=== PATIENT | male | born 1985 | race Caucasian/White ===

== ENCOUNTER 2018-04-18 14:29 | Inpatient (IN) ==
--- NOTE | 2018-04-18 15:14 | Emergency Department Note ---
Disposition Clinical Impression: Hepatitis, Jaundice due to hepatitis Disposition: Admitted As Inpatient Condition: Good Referrals: NONE,PCP [Primary Care Provider] - Dick Lambert [Family Provider] - Forms: ED Satisfaction Letter, Work/School Release Time of Disposition: 19:30 General Adult HPI - General Chief complaint: ED Abdominal Pain Stated complaint: "kidney & liver pain,blood in urine" Time Seen by Provider: 04/18/18 14:49 Source: patient, family Mode of arrival: ambulatory Limitations: no limitations - History of Present Illness HPI Narrative: This is a 33-year-old male with a history of hepatitis C who comes to emergency department reporting bilateral flank pain and right upper quadrant pain began again about 2.5 days prior to arrival. No vomiting, no diarrhea. He was previously referred to the health department regarding the biopsy, but never followed up. Pain Scale: 8 - Related Data Home Medications Medication Instructions Recorded Confirmed No Known Home Drugs 04/18/18 04/18/18 Allergies Allergy/AdvReac Type Severity Reaction Status Date / Time Penicillins Allergy Swelling Verified 04/18/18 14:33 of Lip/Tongue/Throat All systems ED: reviewed and negative except as stated. Gastrointestinal: Reports: abdominal pain Genitourinary: Reports: other (Flank pain bilateral) Past Medical History - Past Medical History Medical history: Reports: hepatitis, other Psychiatric history: Reports: depression - Social History Smoking Status: Current every day smoker Alcohol use: Reports: none Drug use: Reports: IV Drug Use Physical Exam - General Limitations: no limitations General appearance: alert, in no apparent distress - Head Head exam: atraumatic, normocephalic, normal inspection - Eye Eye exam: Present: normal appearance, PERRL, EOMI, scleral icterus (There is mild scleral icterus). Absent: conjunctival injection - Chest Chest inspection: Present: normal inspection, symmetric chest wall rise - Respiratory Respiratory exam: Present: normal lung sounds bilaterally - Cardiovascular Cardiovascular exam: Present: regular rate, normal rhythm, normal heart sounds - Abdominal Exam Abdominal exam: Present: soft, tenderness (Mild right upper quadrant tenderness) Abdominal tenderness: Present: RUQ, mild. Absent: RLQ, LUQ, LLQ, epigastrium - Extremities Exam Extremities exam: Present: normal inspection, full ROM. Absent: tenderness, pedal edema - Back Exam Back exam: Present: normal inspection, CVA tenderness (R), CVA tenderness (L) ( There is mild bilateral CVA tenderness). Absent: vertebral tenderness, rashes - Neurological Exam Neurological exam: Present: alert, oriented X3 - Psychiatric Psychiatric exam: Present: normal affect, normal mood - Skin Skin exam: Present: warm, dry, intact, normal color Course Course Narrative: This is a 33-year-old male with a history of hepatitis C with right upper quadrant pain concerning for an exacerbation of hep C. Vital Signs Temperature 97.9 F 04/18/18 14:34 Pulse Rate 93 04/18/18 14:34 Respiratory Rate 20 04/18/18 14:34 Blood Pressure 124/74 04/18/18 14:34 O2 Sat by Pulse Oximetry 99 04/18/18 14:34 Temperature 97.9 F 04/18/18 14:42 Pulse Rate 80 04/18/18 16:57 Respiratory Rate 16 04/18/18 16:57 Blood Pressure 99/72 04/18/18 16:57 O2 Sat by Pulse Oximetry 99 04/18/18 16:57 Oxygen Delivery Oxygen Delivery Room Air Medical Decision Making - [facility] Narrative Medical decision making narrative: This is a 33-year-old male with known hepatitis C who appears to have a flare of his hepatitis C with significant elevations in his AST and ALT and bilirubin elevation causing jaundice I discussed his case with the on-call hospitalist, who accepted him for admission - Lab Data Lab results reviewed: Yes I reviewed the patient's lab results. Lab results narrative: CBC was unremarkable BMP was unremarkable LFT showed elevated AST at 851, ALT greater than 500, bilirubin elevated at 2.3 Lipase was low at 33 Result diagrams: 04/18/18 15:10 04/18/18 15:10 Lab Results 04/18/18 04/18/18 04/18/18 Range/Units 15:10 15:10 17:54 WBC 4.7 (4.3-11.1) K/mcL RBC 5.66 H (4.19-5.50) M/mcL Hgb 15.9 (12.9-16.9) g/dL Hct 49.9 (37.5-50.1) % MCV 88.2 (83.0-100.0) fL MCH 28.1 (28.0-33.3) pg MCHC 31.9 (31.6-35.5) g/dL RDW 13.6 (11.5-14.5) % Plt Count 137 L (140-400) K/mcL MPV 12.1 (9.4-12.4) fL Immature Gran % 1.7 (0-4) % Seg Neutrophils % 57.7 % Lymphocytes % 26.9 % Monocytes % 10.2 % Eosinophils % 2.6 % Basophils % 0.9 % Neutrophils # 2.7 (1.6-8.9) K/mcL Lymphocytes # 1.3 (0.6-4.6) K/mcL Monocytes # 0.5 (0.0-1.3) K/mcL Eosinophils # 0.1 (0.0-0.6) K/mcL Basophils # 0.0 (0.0-0.2) K/mcL Reactive Lymphocytes Present A (Not Present) Platelet Estimate Normal (Normal) Sodium 140 (136-145) mEq/L Potassium 3.7 (3.5-5.1) mEq/L Chloride 102 (98-107) mEq/L Carbon Dioxide 32 H (23-29) mEq/L BUN 12 (6-20) mg/dL Creatinine 1.05 (0.70-1.30) mg/dL Est GFR ( Amer) > 60 (> 60) Est GFR (Non-Af Amer) > 60 (> 60) BUN/Creatinine Ratio 11 (6-26) Glucose 85 (70-105) mg/dL Calculated Osmolality 289 (280-300) Calcium 8.7 (8.6-10.3) mg/dL Total Bilirubin 2.3 H (0.3-1.0) mg/dL Direct Bilirubin 0.9 H (0.0-0.2) mg/dL Indirect Bilirubin 1.4 H (0.0-1.2) mg/dL AST 851 H (13-39) Units/L ALT > 500 H (7-52) Units/L Alkaline Phosphatase 145 H (34-104) Units/L Serum Total Protein 7.0 (6.4-8.9) g/dL Albumin 3.6 (3.5-5.7) g/dL Globulin 3.4 (2.4-3.5) g/dL Albumin/Globulin Ratio 1.1 (1.1-2.2) Lipase 33 (11-82) Units/L Urine Color Dark Yellow (Yellow) Urine Clarity Clear (Clear) Urine pH 6.5 (5.0-8.0) pH Units Ur Specific Cheney 1.026 H (1.010-1.025) Urine Protein Negative (Neg-Trace) mg/dL Urine Glucose (UA) Normal (Normal) mg/dL Urine Ketones Negative (Negative) mg/dL Urine Blood Negative (Negative) Urine Nitrite Negative (Negative) Urine Bilirubin Moderate H (Negative) Urine Urobilinogen 4.0 H (Normal) mg/dL Ur Leukocyte Esterase Negative (Negative) Ur Culture Indicated? NO (NO) Critical Care Time Critical Care Time: No
[2018-04-18 15:34] LABS: Basophils % 0.9 %; Eosinophils # 0.1 K/mcL (0.0-0.6); Eosinophils % 2.6 %; Hematocrit 49.9 % (37.5-50.1); Hemoglobin 15.9 g/dL (12.9-16.9); Immature Granulocytes % 1.7 % (0-4); Lymphocytes # 1.3 K/mcL (0.6-4.6); Lymphocytes % 26.9 %; Mean Corpuscular HGB Conc 31.9 g/dL (31.6-35.5); Mean Corpuscular Hemoglobin 28.1 pg (28.0-33.3); Mean Corpuscular Volume 88.2 fL (83.0-100.0); Mean Platelet Volume 12.1 fL (9.4-12.4); Monocytes # 0.5 K/mcL (0.0-1.3); Monocytes % 10.2 %; Neutrophils # 2.7 K/mcL (1.6-8.9); Platelet Count 137 K/mcL (140-400); Red Blood Count 5.66 M/mcL (4.19-5.50); Red Cell Distribution Width 13.6 % (11.5-14.5); Segmented Neutrophils % 57.7 %
[2018-04-18] MEDS: 0.9 % Sodium Chloride 1,000 ML IVC SCH ×2 (15:42→16:56)
[2018-04-18 16:00] LABS: Alanine Aminotransferase > 500 Units/L (7-52); Albumin 3.6 g/dL (3.5-5.7); Albumin/Globulin Ratio 1.1 (1.1-2.2); Alkaline Phosphatase 145 Units/L (34-104); Aspartate Amino Transferase 851 Units/L (13-39); BUN/Creatinine Ratio 11 (6-26); Bilirubin,Direct 0.9 mg/dL (0.0-0.2); Bilirubin,Indirect 1.4 mg/dL (0.0-1.2); Bilirubin,Total 2.3 mg/dL (0.3-1.0); Blood Urea Nitrogen 12 mg/dL (6-20); Calcium 8.7 mg/dL (8.6-10.3); Carbon Dioxide 32 mEq/L (23-29); Chloride 102 mEq/L (98-107); Globulin 3.4 g/dL (2.4-3.5); Glucose 85 mg/dL (70-105); Lipase 33 Units/L (11-82); Osmolality,Calculated 289 (280-300); Potassium 3.7 mEq/L (3.5-5.1); Sodium 140 mEq/L (136-145); eGFR For Non-African Americans > 60 (> 60)
[2018-04-18 16:41] LABS: Platelet Estimate Normal (Normal); Reactive Lymphocytes Present (Not Present)
[2018-04-18 18:05] LABS: Bilirubin,Urine Moderate (Negative); Blood,Urine Negative (Negative); Clarity,Urine Clear (Clear); Color,Urine Dark Yellow (Yellow); Glucose,Urine (UA) Normal (Normal); Ketones,Urine Negative (Negative); Leukocyte Esterase,Urine Negative (Negative); Nitrite,Urine Negative (Negative); PH,Urine 6.5 pH Units (5.0-8.0); Protein,Urine Negative (Neg-Trace); Specific Gravity,Urine 1.026 (1.010-1.025)
[2018-04-18] MEDS ORDERED: 0.9 % Sodium Chloride 1,000 ML IVC SCH (19:30)
[2018-04-18] MEDS ORDERED: Naloxone 0.4 MG/ML INJ IVP PRN (20:22)
--- NOTE | 2018-04-18 21:27 | Internal Med History&Physical ---
Date of Encounter: 04/18/18 Time of Encounter: 21:00 Internal Medicine - H&P: HPI Chief complaint: Back pain and abdominal pain Admitted From: Emergency Dept Plans for Post Hospital Care: Home History of present illness: Mr. Barriga is a 33 year old male with history of hepatitis C, bleeding ulcers, cholecystitis and IV drug use who presents to the ED with 1 week history of bilateral flank pain and right upper quadrant abdominal pain. The patient says that this started insidiously about one week ago and has been progressively getting worse. It is associated with some nausea but no vomiting as well as profound lethargy and some yellowing of the skin. He says that over the past 2 days he has basically been nonstop sleeping. In fact, he says that he believes he has not woken up in the past 2 days at all. In addition of this, he says that he has had hot and cold flashes and he has had sweats associated with this as well. He has also had some cramping and pain in his arms and legs. He has no aggravating or alleviating factors. He did take a cold and sinus medication which to his knowledge had acetaminophen in it but was not very helpful. His only other symptom at this time is dark-colored urine. The patient mentions that he has had a history of hospitalizations over the course the past year. He says that about 1 year ago he was at [facility] which time he was admitted for what he says he believes was suspected kidney failure, however he signed out AGAINST MEDICAL ADVICE prior to finishing the workup. He says that he does not believe he needed hemodialysis at that time. In addition of this, he says that over the past couple of months he has had to go to [facility] several times due to episodes of fainting and passing out, but each time he has also left AGAINST MEDICAL ADVICE prior to completing the workup. He does admit to a history of IV drug use, mentioning at the last time he used IV meth was about one week ago. He denies use of alcohol, says the last time he had any alcohol consumption was about 4 years ago. He smokes about half a pack a day. In the emergency department, the patient did have a series of labs which demonstrated elevated liver enzymes with AST 851, ALT greater than 500, T BILI 2.3, D BILI 0.9, I BILI 1.4. Past Med Surg Social Fam HX - Past Medical History Medical history: hepatitis, other Additional medical history: Hepatitis C; "Heart problems" esophageal varices Psychiatric history: depression - Social History Smoking Status: Current every day smoker Alcohol use: none Drug use: IV Drug Use Internal Medicine - H&P: Meds No Known Home Drugs 04/18/18 [History] 3 Allergy/AdvReac Type Severity Reaction Status Date / Time Penicillins Allergy Swelling Verified 04/18/18 14:33 of Lip/Tongue/Throat All Systems PM: A 10-system review of systems was performed and is negative for pertinent findings except as documented above in the HPI. Review of systems: Constitutional: Admit to subjective fever, chills, lethargy Head/Neck: Denies RUST, neck stiffness EENT: Denies vision changes/blurriness, rhinorrhea, congestion, sore throat CVS: Denies chest pain, palpitations, DAVIES, orthopnea, edema, PND Pulm: Denies SOB, cough, sputum, hemoptysis, wheezing GI: Admits to abdominal pain nausea. Denies vomiting, constipation, hematemesis , hematochezia, melena : Denies dysuria, increased frequency, urgency, hematuria Heme: Denies ease of bleeding or bruising MSK: Denies joint pain, limited ROM Skin: Admits to yellowing of the skin. Denies rashes, ulcers, color changes. Neuro: Denies RUST, paresthesias, focal deficits, ataxia - Constitutional Vitals: Temp Pulse Resp BP Pulse Ox 99.2 F 82 14 113/61 96 04/18/18 20:51 04/18/18 20:51 04/18/18 20:51 04/18/18 20:51 04/18/18 20:51 Exam: Gen: Vitals noted. No acute distress. Patient appears listless HEENT: Normocephalic, atraumatic. Very mild scleral icterus noted bilaterally Neck: Supple. No adenopathy. Cardiac: RRR, no murmur, +S1/S2 Pulmonary: CTA bilaterally, no wheezes, rales or rhonchi, equal chest expansion Abdomen: soft, mildly tender to palpation, no guarding. There is no hepatomegaly noted. Back: Nontender throughout. Mild CVA tenderness bilaterally MSK: ROM intact, no joint swelling noted Extremities: no BLE edema, nontender calf, no cyanosis or clubbing Neuro: moves all extremities, no focal deficits. A&Ox3 Psych: Cooperative, appears anxious Internal Med - H&P Results - Labs CBC & Chem 7: 04/18/18 15:10 04/18/18 15:10 - Assessment and plan (1) Hepatitis Current Visit: Yes Status: Acute Assessment and plan: Presents with abdominal pain and flank pain, likely secondary to hepatitis Known history of hepatitis C, however unlikely source of acute flare Patient does have history of IV drug use, most recent use one week ago Presents with AST 851, ALTs > 500, total bilirubin 2.3, direct bilirubin 0.9, indirect bilirubin 1.4. There is scleral icterus on exam We will check the patient for viral hepatitis panel A, B, and C Right upper quadrant ultrasound IV fluids (2) Hepatic encephalopathy Current Visit: Yes Status: Acute Assessment and plan: Hepatic encephalopathy AST 851, ALT greater than 500. Ammonia 75 Symptomatic, patient says he slept for the past 2 days He appears akathisic, there is mild asterixis takes on exam Start the patient on twice a day lactulose at this time We will recheck ammonia and hepatic panel in the morning (3) IV drug user Current Visit: Yes Status: Acute Assessment and plan: History of IV drug use No evidence of time, however high risk We will continue to monitor, check for hepatitis If the patient demonstrates evidence of infection consider blood cultures (4) Tobacco use Current Visit: Yes Status: Acute Assessment and plan: Nicotine patches as needed (5) DVT prophylaxis Current Visit: Yes Status: Acute Assessment and plan: Subcutaneous heparin - Time Spent With Patient Total time spent is greater than 50% in coordination of care (as documented) at patient's floor/unit and/or counseling patient:
[2018-04-18 22:44] LABS: Hepatitis B Core IgM Nonreactive (Nonreactive); Hepatitis B Surface Antigen Nonreactive (Nonreactive)
[2018-04-18 22:48] LABS: Hepatitis A Antibody IgM Reactive (Nonreactive)
[2018-04-18 22:49] LABS: Hepatitis C Virus Antibody Reactive (Nonreactive)
[2018-04-18] MEDS: Ringers Solution, Lactated 1,000 ML IVC SCH (22:53)
[2018-04-18] MEDS: Ketorolac 15 MG/ML VIAL IVP PRN (22:53)
[2018-04-18] MEDS: *HR* Heparin 5,000 UNIT/ML VIAL SQ SCH (22:54)
[2018-04-18] MEDS: Lactulose Oral Soln 20 GM/30 ML UDC PO SCH (23:02)
[2018-04-19] MEDS ORDERED: *HR* Promethazine 25 MG/ML VIAL IM PRN (03:41)
[2018-04-19] MEDS: Ketorolac 15 MG/ML VIAL IVP PRN (05:22)
[2018-04-19] MEDS: *HR* Heparin 5,000 UNIT/ML VIAL SQ SCH ×3 (05:28→20:57)
[2018-04-19] MEDS: Ondansetron ODT 4 MG TAB.RAPDIS SL PRN (05:55)
[2018-04-19 06:04] LABS: Basophils % 0.6 %; Eosinophils # 0.1 K/mcL (0.0-0.6); Eosinophils % 1.9 %; Hematocrit 46.1 % (37.5-50.1); Hemoglobin 15.2 g/dL (12.9-16.9); Immature Granulocytes % 0.9 % (0-4); Lymphocytes # 1.7 K/mcL (0.6-4.6); Lymphocytes % 27.3 %; Mean Corpuscular Hemoglobin 28.4 pg (28.0-33.3); Mean Corpuscular Volume 86.2 fL (83.0-100.0); Mean Platelet Volume 12.5 fL (9.4-12.4); Monocytes # 0.6 K/mcL (0.0-1.3); Neutrophils # 3.8 K/mcL (1.6-8.9); Platelet Count 127 K/mcL (140-400); Red Blood Count 5.35 M/mcL (4.19-5.50); Red Cell Distribution Width 13.9 % (11.5-14.5); Segmented Neutrophils % 59.3 %
[2018-04-19 06:19] LABS: INR 1.2; Prothrombin Time 13.7 Seconds (9.4-12.1)
[2018-04-19 06:27] LABS: Alanine Aminotransferase > 500 Units/L (7-52); Albumin 3.4 g/dL (3.5-5.7); Albumin/Globulin Ratio 1.1 (1.1-2.2); Alkaline Phosphatase 144 Units/L (34-104); Aspartate Amino Transferase 991 Units/L (13-39); BUN/Creatinine Ratio 10 (6-26); Bilirubin,Direct 1.6 mg/dL (0.0-0.2); Bilirubin,Indirect 1.6 mg/dL (0.0-1.2); Bilirubin,Total 3.2 mg/dL (0.3-1.0); Blood Urea Nitrogen 8 mg/dL (6-20); Calcium 8.6 mg/dL (8.6-10.3); Carbon Dioxide 26 mEq/L (23-29); Chloride 105 mEq/L (98-107); Cholesterol 72 mg/dL (< 200); Glucose 131 mg/dL (70-105); HDL Cholesterol 4 mg/dL (40-59); LDL Cholesterol,Calculated 46 mg/dL (0-99); Osmolality,Calculated 282 (280-300); Potassium 3.6 mEq/L (3.5-5.1); Sodium 136 mEq/L (136-145); Total Protein 6.4 g/dL (6.4-8.9); Triglycerides 112 mg/dL (< 150); eGFR For Non-African Americans > 60 (> 60)
[2018-04-19] MEDS ORDERED: Isovue-370 500 ML INFUS..BTL IV ONE ×2 (07:11→08:39)
[2018-04-19] MEDS: Lactulose Oral Soln 20 GM/30 ML UDC PO SCH ×2 (09:30→20:57)
[2018-04-19] MEDS: Nicotine 14 MG PATCH.TD24 TD SCH (09:30)
[2018-04-19] MEDS: Ketorolac 30 MG/ML VIAL IVP PRN ×2 (14:50→20:57)
[2018-04-19] MEDS ORDERED: 0.9 % Sodium Chloride 1,000 ML IVC ONE ×2 (15:11→18:51)
--- NOTE | 2018-04-19 15:29 | Gastroenterology Consult Note ---
<Zena Thompson - Last Filed: 04/19/18 18:26> Date of Encounter: 04/19/18 Time of Encounter: 11:35 - Assessment and plan (1) Hepatitis Status: Acute Assessment and plan: 33-year-old male with chronic hepatitis C and acute hepatitis A infection. He has never had hepatitis A before and not know where he contracted it. He has had one week of increased fatigue, weakness, right upper quadrant pain, nausea, jaundice. Hepatitis a positive, hepatitis C antibody positive liver ultrasound demonstrating mild hepatic steatosis abdominal CT demonstrating splenomegaly PT 13.7, INR 1.2 platelets 127 total bilirubin 3.2, direct bilirubin 1.6, indirect bilirubin 1.6 AST 931, ALT>500 ammonia 75 albumin 3.4 lipase 33 patient reported that abdominal pain is tolerable. Abdominal exam is soft, right upper quadrant in epigastric tender. No jaundice or scleral icterus. Plan: continue supportive care. Patient is tolerating PO intake well. (2) Hepatic encephalopathy Status: Acute Assessment and plan: Hepatic encephalopathy with symptoms of increased sleep. He is alert and or iented times 3. ammonia 75 -patient then started on lactulose 20 BID (3) IV drug user Status: Acute Assessment and plan: IV drug user of methamphetamine, last use one week ago. (4) Tobacco use Status: Acute Assessment and plan: Current smoker of half pack per day - Time Spent With Patient Total time spent is greater than 50% in coordination of care (as documented) at patient's floor/unit and/or counseling patient: GI History of Present Illness - Data of Consult Consult date: 04/18/18 Requesting Physician: Jeovany Farias - Consult Narrative Reason for consult: Chronic hepatitis C and acute hepatitis A History of present illness: Mr. Barriga is a 33 year old male with past medical history of hepatitis C who presented to [facility] complaining of right upper quadrant pain and fatigue for one week duration. Hie was found that be hepatitis A positive so gastroenterology was consulted. He reported that he has not been in contact with anyone with hepatitis A and is not know how he contracted it. He has never had it before. He reported that for one week he has had increased fatigue and weakness. He has been sleeping a lot. He has had right upper quadrant pain with nausea but no vomiting. He admitted fever, chills, jaundice. Denied scleral icterus, pruritus. He is an IV drug user of methamphetamine but stated that he is not used in 1 week. He denies alcohol use. He is a current smoker of half pack per day. Past Med Surg Social Fam HX - Past Medical History Attestation: Yes The following information was validated with the patient. Source: patient Medical history: hepatitis, other Additional medical history: Hepatitis C; "Heart problems" esophageal varices Psychiatric history: depression - Past Surgical History Surgical History: cholecystectomy - Social History Smoking Status: Current every day smoker Packs per day: 0.5 Smokeless Tobacco Status: No Alcohol use: none Drug use: marijuana, methamphetamine, IV Drug Use - Family History Father Name: braden Living Status: Age at : 36 Cause of : cancer Hx Family Cancer: Yes (hodgkins and non hodgkins) Maternal Grandfather Living Status: Age at : 59 Cause of : cancer Hx Family Cancer: Yes (lung) Sister Name: luis Age: 32 Living Status: Still Living Hx Family Cardiac Disorders: Yes Hx Family Neuromuscular Disorders: Yes - Gastrointestinal Gastrointestinal: Present: abdominal pain, nausea, vomiting. Absent: diarrhea, heartburn, hematemesis, hematochezia, melena - Constitutional Constitutional: anorexia, fatigue, fever(s) - EENT Nose, mouth and throat: Absent: dysphagia - Cardiovascular Cardiovascular ROS: Absent: chest pain, irregular heart rhythm - Respiratory Respiratory IM: Absent: cough, dyspnea - Genitourinary Genitourinary: Present: change in color (dark). Absent: Urinary frequency - Neurological ROS Neurological GI: Absent: confusion, headache(s) - Hematologic/Lymphatic Hematologic/Lymphatic pediatric: Absent: easy bleeding - Musculoskeletal Musculoskeletal ROS GI: Absent: joint swelling - Integumentary Integumentary GI: Absent: jaundice, pruritis, rash - Psychiatric ROS Psychiatric GI: Absent: anxiety - Endocrine Endocrine IM: Present: fatigue - Constitutional Vitals: Temp Pulse Resp BP Pulse Ox 101.1 F H 71 12 93/56 96 04/19/18 15:02 04/19/18 15:02 04/19/18 15:02 04/19/18 15:02 04/19/18 15:02 Exam: Gen.: Vitals noted. No acute distress. AAOx3 HEENT: oropharynx clear, Normocephalic, atraumatic, no jaundice or scleral icterus Neck: Supple. No adenopathy. Cardiac: RRR, no murmur, +S1/S2 Pulmonary: CTA bilaterally, no wheezes, rales or rhonchi, equal chest expansion Abdomen: soft, nontender, Bowel sounds noted, no guarding MSK: ROM intact, no joint swelling noted Extremities: no BLE edema, nontender calf, no cyanosis or clubbing Neuro: A&Ox3, moves all extremities, no focal deficits Psych: Appropriate mood and behavior Results - Labs CBC & Chem 7: 04/19/18 05:34 04/19/18 05:34 Labs: Last Result Calcium 8.6 mg/dL (8.6-10.3) 04/19/18 05:34 Triglycerides 112 mg/dL (< 150) 04/19/18 05:34 Entire Visit Hgb 15.2 g/dL (12.9-16.9) 04/19/18 05:34 Hct 46.1 % (37.5-50.1) 04/19/18 05:34 PT 13.7 Seconds (9.4-12.1) H 04/19/18 05:34 Total Bilirubin 3.2 mg/dL (0.3-1.0) H 04/19/18 05:34 AST 991 Units/L (13-39) H 04/19/18 05:34 ALT > 500 Units/L (7-52) H 04/19/18 05:34 Ammonia 75 mcmol/L (16-53) H 04/19/18 05:34 Lipase 33 Units/L (11-82) 04/18/18 15:10 - ABG ABG results: PT/INR, D-dimer PT 13.7 Seconds (9.4-12.1) H 04/19/18 05:34 - Impressions Impressions Liver Ultrasound 04/18/18 20:25 IMPRESSION: Mild hepatic steatosis. No focal lesion detected. Nonvisualization of the gallbladder. Correlate with any potential history of cholecystectomy. D/ / Og Gutierrez MD / Og Gutierrez MD Interpreting Provider: Og Gutierrez MD Abdomen/Pelvis CT 04/19/18 08:39 IMPRESSION: 1. No evidence of renal stones or obstructive uropathy. Small bilateral renal cysts. 2. Splenomegaly. 3. Abdominal lymphadenopathy as described. 4. No acute gastrointestinal abnormality. RECOMMENDATIONS: Fleischner Society guidelines for follow-up and management of incidentally detected pulmonary nodules: Single Solid Nodule: Nodule size less than 6 mm In a low-risk patient, no routine follow-up. In a high-risk patient, optional CT at 12 months. Nodule size equals 6-8 mm In a low-risk patient, CT at 6-12 months, then consider CT at 18-24 months. In a high-risk patient, CT at 6-12 months, then CT at 18-24 months. Nodule size greater than 8 mm In a low-risk patient, consider CT at 3 months, PET/CT, or tissue sampling. In a high-risk patient, consider CT at 3 months, PET/CT, or tissue sampling. Multiple Solid Nodules: Nodule size less than 6 mm In a low-risk patient, no routine follow-up. In a high-risk patient, optional CT at 12 months. Nodule size equals 6-8 mm In a low-risk patient, CT at 3-6 months, then consider CT at 18-24 months. In a high-risk patient, CT at 3-6 months, then CT at 18-24 months. Nodule size greater than 8 mm In a low-risk patient, CT at 3-6 months, then consider CT at 18-24 months. In a high-risk patient, CT at 3-6 months, then CT at 18-24 months. - Low risk patients include individuals with minimal or absent history of smoking and other known risk factors. - High risk patients include individuals with a history or smoking or known risk factors. Radiology 2017 http://pubs.rsna.org/doi/full/10.1148/radiol.[email or web address] D/ / 04/19/2018 09:56:54 Guera Alejandra MD / Francia Winchester Interpreting Provider: Guera Alejandra MD Consult Discharge Plan - Plan Instructions: Viral Hepatitis A (DC) Referrals: Sammie Buckley CNP [Partnered Physician] - 04/27/18 2:00 pm (Primary Care Physician appt has been made with Sammie Buckley CNP for Friday April 27, 2018 at 2:00 PM. Please arrive 30 minutes early to fill out medical history. Also bring a list of medications you are currently prescribed. If you are to cancel you must give a 24 hour notice and can contact the office at [phone].) <Waldemar Vides - Last Filed: 05/01/18 22:09> - Time Spent With Patient Total time spent is greater than 50% in coordination of care (as documented) at patient's floor/unit and/or counseling patient: GI History of Present Illness - Data of Consult Requesting Physician: Jeovany Farias - Consult Narrative History of present illness: Mr. Barriga is a 33 year old male - Constitutional Vitals: Temp Pulse Resp BP Pulse Ox 98.2 F 66 16 104/57 96 04/21/18 11:05 04/21/18 11:05 04/21/18 11:05 04/21/18 11:05 04/21/18 11:05 Results - Labs CBC & Chem 7: 04/20/18 11:35 04/21/18 05:38 Labs: Last Result Calcium 8.5 mg/dL (8.6-10.3) L 04/21/18 05:38 Triglycerides 112 mg/dL (< 150) 04/19/18 05:34 Entire Visit Hgb 14.5 g/dL (12.9-16.9) 04/20/18 11:35 Hct 43.5 % (37.5-50.1) 04/20/18 11:35 PT 13.7 Seconds (9.4-12.1) H 04/19/18 05:34 Total Bilirubin 6.3 mg/dL (0.3-1.0) H 04/21/18 05:38 AST 1219 Units/L (13-39) H 04/21/18 05:38 ALT > 500 Units/L (7-52) H 04/21/18 05:38 Ammonia 78 mcmol/L (16-53) H 04/21/18 05:38 Lipase 33 Units/L (11-82) 04/18/18 15:10 - ABG ABG results: PT/INR, D-dimer PT 13.7 Seconds (9.4-12.1) H 04/19/18 05:34 - Attending Attestation 33 year old with uncomplicated I examined this patient and my medical decision-making was reviewed with the Resident Physician. I agree with the documented findings, disposition and treatment plan as described except to the extent set forth below. acute hepatitis C in setting of possible chronic hepatitis C. Supportive management. Discharge when patient can eat adequately. Follow up in clinic.
--- NOTE | 2018-04-19 18:56 | Internal Med Progress Note ---
Hospitalist Progress Note - Encounter Date of Encounter: 04/19/18 Time of Encounter: 11:00 - Subjective Interval History: Patient does not appear jaundice on exam and abdomen soft nontender nondistended. Patient's transaminases however still elevated therefore will continue supportive care with IV fluids. Patient also became hypotensive this afternoon and received fluid boluses. - Exam Vitals: Temp Pulse Resp BP Pulse Ox 98.3 F 71 12 107/64 100 04/19/18 17:08 04/19/18 17:08 04/19/18 17:08 04/19/18 17:08 04/19/18 17:08 Exam: Gen.: Nonacute distress, alert and oriented 3 ENT: Mucosal membranes moist Respiratory: Lungs are clear to auscultation bilaterally without any wheezing rhonchi or rales Cardiovascular: Normal S1 and S2 regular rate rhythm no murmurs rubs or gallops Abdomen: Soft, nontender and nondistended with positive bowel sounds Extremities: No lower extremity edema Skin: Normal color - Assessment and Plan (1) Hepatitis Current Visit: Yes Status: Acute Assessment and Plan: AST elevated today at 991 from 851 on admission and ALT continues to be greater than 500 Total bilirubin increased as well to 3.2 today from 2.3 Direct bilirubin has increased to well from 0.9 on admission to 1.6 Patient with no history of hepatitis C now positive for hepatitis A GI following with recommendations for continue supportive care with IV fluids (2) Hepatic encephalopathy Current Visit: Yes Status: Acute Assessment and Plan: Ammonia 75 She alert and oriented this morning Continue twice a day lactulose at this time (3) IV drug user Current Visit: Yes Status: Acute Assessment and Plan: History of IV drug use (4) Tobacco use Current Visit: Yes Status: Acute Assessment and Plan: Nicotine patches as needed (5) DVT prophylaxis Current Visit: Yes Status: Acute Assessment and Plan: Subcutaneous heparin - Time Spent with Patient Total time spent is greater than 50% in coordination of care (as documented) at patient's floor/unit and/or counseling patient: Internal Medicine: Result - Labs CBC & Chem 7: 04/19/18 05:34 04/19/18 05:34 Labs: Short CBC 04/19/18 Range/Units 05:34 WBC 6.4 (4.3-11.1) K/mcL Hgb 15.2 (12.9-16.9) g/dL Hct 46.1 (37.5-50.1) % Plt Count 127 L (140-400) K/mcL Neutrophils # 3.8 (1.6-8.9) K/mcL BMP 04/19/18 05:34 Sodium 136 Potassium 3.6 Chloride 105 Carbon Dioxide 26 BUN 8 Creatinine 0.79 Glucose 131 H Calcium 8.6 Liver Function 04/19/18 Range/Units 05:34 Total Bilirubin 3.2 H (0.3-1.0) mg/dL Direct Bilirubin 1.6 H (0.0-0.2) mg/dL AST 991 H (13-39) Units/L ALT > 500 H (7-52) Units/L Alkaline Phosphatase 144 H (34-104) Units/L Albumin 3.4 L (3.5-5.7) g/dL - ABG Interpretation ABG results: PT/INR, D-dimer PT 13.7 Seconds (9.4-12.1) H 04/19/18 05:34 - Impressions Impressions Liver Ultrasound 04/18/18 20:25 IMPRESSION: Mild hepatic steatosis. No focal lesion detected. Nonvisualization of the gallbladder. Correlate with any potential history of cholecystectomy. D/ / Og Gutierrez MD / Og Gutierrez MD Interpreting Provider: Og Gutierrez MD Abdomen/Pelvis CT 04/19/18 08:39 IMPRESSION: 1. No evidence of renal stones or obstructive uropathy. Small bilateral renal cysts. 2. Splenomegaly. 3. Abdominal lymphadenopathy as described. 4. No acute gastrointestinal abnormality. RECOMMENDATIONS: Fleischner Society guidelines for follow-up and management of incidentally detected pulmonary nodules: Single Solid Nodule: Nodule size less than 6 mm In a low-risk patient, no routine follow-up. In a high-risk patient, optional CT at 12 months. Nodule size equals 6-8 mm In a low-risk patient, CT at 6-12 months, then consider CT at 18-24 months. In a high-risk patient, CT at 6-12 months, then CT at 18-24 months. Nodule size greater than 8 mm In a low-risk patient, consider CT at 3 months, PET/CT, or tissue sampling. In a high-risk patient, consider CT at 3 months, PET/CT, or tissue sampling. Multiple Solid Nodules: Nodule size less than 6 mm In a low-risk patient, no routine follow-up. In a high-risk patient, optional CT at 12 months. Nodule size equals 6-8 mm In a low-risk patient, CT at 3-6 months, then consider CT at 18-24 months. In a high-risk patient, CT at 3-6 months, then CT at 18-24 months. Nodule size greater than 8 mm In a low-risk patient, CT at 3-6 months, then consider CT at 18-24 months. In a high-risk patient, CT at 3-6 months, then CT at 18-24 months. - Low risk patients include individuals with minimal or absent history of smoking and other known risk factors. - High risk patients include individuals with a history or smoking or known risk factors. Radiology 2017 http://pubs.rsna.org/doi/full/10.1148/radiol.1731937224 D/ / 04/19/2018 09:56:54 Guera Alejandra MD / Francia Winchester Interpreting Provider: Guera Alejandra MD Consult Discharge Plan - Plan Referrals: NONE,PCP [Primary Care Provider] - Dick Lambert [Family Provider] -
[2018-04-19] MEDS: Ringers Solution, Lactated 1,000 ML IVC SCH (23:04)
[2018-04-20] MEDS: Ringers Solution, Lactated 1,000 ML IVC SCH ×3 (00:30→13:22)
[2018-04-20] MEDS: *HR* Heparin 5,000 UNIT/ML VIAL SQ SCH ×3 (06:01→21:20)
[2018-04-20] MEDS: Lactulose Oral Soln 20 GM/30 ML UDC PO SCH ×2 (07:22→20:23)
[2018-04-20] MEDS: Nicotine 14 MG PATCH.TD24 TD SCH (07:22)
[2018-04-20 11:54] LABS: Basophils % 0.8 %; Eosinophils # 0.1 K/mcL (0.0-0.6); Eosinophils % 2.4 %; Hematocrit 43.5 % (37.5-50.1); Hemoglobin 14.5 g/dL (12.9-16.9); Immature Granulocytes % 1.1 % (0-4); Lymphocytes # 1.9 K/mcL (0.6-4.6); Lymphocytes % 36.2 %; Mean Corpuscular HGB Conc 33.3 g/dL (31.6-35.5); Mean Corpuscular Hemoglobin 28.5 pg (28.0-33.3); Mean Corpuscular Volume 85.6 fL (83.0-100.0); Mean Platelet Volume 13.5 fL (9.4-12.4); Monocytes # 0.5 K/mcL (0.0-1.3); Monocytes % 8.4 %; Neutrophils # 2.7 K/mcL (1.6-8.9); Platelet Count 128 K/mcL (140-400); Red Blood Count 5.08 M/mcL (4.19-5.50); Red Cell Distribution Width 14.6 % (11.5-14.5); Segmented Neutrophils % 51.1 %
[2018-04-20 12:16] LABS: Platelet Estimate Slight Decrease (Normal)
[2018-04-20 13:00] LABS: Alanine Aminotransferase > 500 Units/L (7-52); Alkaline Phosphatase 140 Units/L (34-104); Aspartate Amino Transferase 1386 Units/L (13-39); BUN/Creatinine Ratio 10 (6-26); Bilirubin,Direct 2.8 mg/dL (0.0-0.2); Bilirubin,Indirect 2.4 mg/dL (0.0-1.2); Bilirubin,Total 5.2 mg/dL (0.3-1.0); Blood Urea Nitrogen 7 mg/dL (6-20); Calcium 8.3 mg/dL (8.6-10.3); Carbon Dioxide 25 mEq/L (23-29); Chloride 107 mEq/L (98-107); Globulin 2.9 g/dL (2.4-3.5); Glucose 91 mg/dL (70-105); Osmolality,Calculated 282 (280-300); Potassium 4.3 mEq/L (3.5-5.1); Sodium 137 mEq/L (136-145); Total Protein 5.9 g/dL (6.4-8.9); eGFR For Non-African Americans > 60 (> 60)
[2018-04-20] MEDS: Ketorolac 30 MG/ML VIAL IVP PRN ×2 (13:27→18:51)
[2018-04-20] MEDS: Ondansetron ODT 4 MG TAB.RAPDIS SL PRN (13:27)
--- NOTE | 2018-04-20 13:28 | Gastroenterology Progress Note ---
Date of Encounter: 04/20/18 Time of Encounter: 10:30 - Assessment and plan (1) Hepatitis Current Visit: Yes Status: Acute Assessment and plan: 33-year-old male with chronic hepatitis C and acute hepatitis A infection. He has never had hepatitis A before and not know where he contracted it. He has had one week of increased fatigue, weakness, right upper quadrant pain, nausea, jaundice. Hepatitis a positive, hepatitis C antibody positive liver ultrasound demonstrating mild hepatic steatosis abdominal CT demonstrating splenomegaly PT 13.7, INR 1.2 platelets 127 total bilirubin 3.2, direct bilirubin 1.6, indirect bilirubin 1.6 AST 1386 (931), ALT>500 alkaline phosphatase 140 (144) ammonia 75 albumin 3.4 lipase 33 patient reported that abdominal pain is improved from yesterday. However he still having some nausea and decreased appetite. Abdominal exam is soft, minimal right upper quadrant tender. No jaundice or scleral icterus. Plan: AST increased however, symptomatically improved. clinically scleral icterus and jaundice is improved. continue supportive care. As long as patient is tolerating oral intake while he may be discharged. (2) Hepatic encephalopathy Current Visit: Yes Status: Acute Assessment and plan: Resolved. Hepatic encephalopathy with symptoms of increased sleep. He is alert and oriented times 3. 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 (4) Tobacco use Current Visit: Yes Status: Acute Assessment and plan: Current smoker of half pack per day - Time Spent With Patient Total time spent is greater than 50% in coordination of care (as documented) at patient's floor/unit and/or counseling patient: - Subjective Interval history: Patient seen and examined at bedside. He is alert and oriented times 3 in no acute distress. He reported that he feels much improved from admission in terms of abdominal pain. He does still have some abdominal pain. He admits to nausea. So does not feel like eating very much. Jaundice and scleral icterus has improved. Urine is still dark. - Constitutional Vitals: Temp Pulse Resp BP Pulse Ox 98.3 F 89 15 112/66 94 04/20/18 11:44 04/20/18 11:44 04/20/18 11:44 04/20/18 11:44 04/20/18 11:44 Exam: Gen.: Vitals noted. No acute distress. AAOx3 HEENT: oropharynx clear, Normocephalic, atraumatic, resolved scleral icterus, improved jaundice Neck: Supple. No adenopathy. Cardiac: RRR, no murmur, +S1/S2 Pulmonary: CTA bilaterally, no wheezes, rales or rhonchi, equal chest expansion Abdomen: soft, minimal right upper quadrant tender, Bowel sounds noted, no guarding MSK: ROM intact, no joint swelling noted Extremities: no BLE edema, nontender calf, no cyanosis or clubbing Neuro: A&Ox3, moves all extremities, no focal deficits Psych: Appropriate mood and behavior Results - Labs CBC & Chem 7: 04/20/18 11:35 04/20/18 11:35 Labs: Last Result Calcium 8.3 mg/dL (8.6-10.3) L 04/20/18 11:35 Triglycerides 112 mg/dL (< 150) 04/19/18 05:34 Entire Visit Hgb 14.5 g/dL (12.9-16.9) 04/20/18 11:35 Hct 43.5 % (37.5-50.1) 04/20/18 11:35 PT 13.7 Seconds (9.4-12.1) H 04/19/18 05:34 Total Bilirubin 5.2 mg/dL (0.3-1.0) H 04/20/18 11:35 AST 1386 Units/L (13-39) H 04/20/18 11:35 ALT > 500 Units/L (7-52) H 04/20/18 11:35 Ammonia 75 mcmol/L (16-53) H 04/19/18 05:34 Lipase 33 Units/L (11-82) 04/18/18 15:10 - ABG ABG results: PT/INR, D-dimer PT 13.7 Seconds (9.4-12.1) H 04/19/18 05:34 Consult Discharge Plan - Plan Referrals: Sammie Buckley CNP [Partnered Physician] - 04/27/18 2:00 pm (Primary Care Physician appt has been made with Sammie Buckley CNP for Friday April 27, 2018 at 2:00 PM. Please arrive 30 minutes early to fill out medical history. Also bring a list of medications you are currently prescribed. If you are to cancel you must give a 24 hour notice and can contact the office at [phone].) NONE,PCP [Primary Care Provider] - Dick Lambert [Family Provider] -
--- NOTE | 2018-04-20 19:01 | Internal Med Progress Note ---
Hospitalist Progress Note - Encounter Date of Encounter: 04/20/18 Time of Encounter: 11:00 - Subjective Interval History: Patient's liver enzymes worsening Continue IV fluids for supportive care awaiting downward trend of LFTs - Exam Vitals: Temp Pulse Resp BP Pulse Ox 98.3 F 89 15 112/66 94 04/20/18 11:44 04/20/18 11:44 04/20/18 11:44 04/20/18 11:44 04/20/18 11:44 Exam: Gen.: Nonacute distress, alert and oriented 3 ENT: Mucosal membranes moist Respiratory: Lungs are clear to auscultation bilaterally without any wheezing rhonchi or rales Cardiovascular: Normal S1 and S2 regular rate rhythm no murmurs rubs or gallops Abdomen: Soft, nontender and nondistended with positive bowel sounds Extremities: No lower extremity edema Skin: Normal color - Assessment and Plan (1) Hepatitis Current Visit: Yes Status: Acute Assessment and Plan: AST elevated today at 1386 from 991 yesterday and 851 on admission ALT continues to be greater than 500 Total bilirubin increased as well to5.2 today from 3.2 yesterday and 2.3 on admission Direct bilirubin has increased as well to 2.8 from 0.9 on admission to 1.6 yesterday Patient with no history of hepatitis C now positive for hepatitis A GI following with recommendations for continue supportive care with IV fluids (2) Hepatic encephalopathy Current Visit: Yes Status: Acute Assessment and Plan: Ammonia 75 She alert and oriented this morning Continue twice a day lactulose at this time (3) IV drug user Current Visit: Yes Status: Acute Assessment and Plan: History of IV drug use (4) Tobacco use Current Visit: Yes Status: Acute Assessment and Plan: Nicotine patches as needed (5) DVT prophylaxis Current Visit: Yes Status: Acute Assessment and Plan: Subcutaneous heparin - Time Spent with Patient Total time spent is greater than 50% in coordination of care (as documented) at patient's floor/unit and/or counseling patient: Internal Medicine: Result - Labs CBC & Chem 7: 04/20/18 11:35 04/20/18 11:35 Labs: Short CBC 04/20/18 Range/Units 11:35 WBC 5.3 (4.3-11.1) K/mcL Hgb 14.5 (12.9-16.9) g/dL Hct 43.5 (37.5-50.1) % Plt Count 128 L (140-400) K/mcL Neutrophils # 2.7 (1.6-8.9) K/mcL BMP 04/20/18 11:35 Sodium 137 Potassium 4.3 Chloride 107 Carbon Dioxide 25 BUN 7 Creatinine 0.73 Glucose 91 Calcium 8.3 L Liver Function 04/20/18 Range/Units 11:35 Total Bilirubin 5.2 H (0.3-1.0) mg/dL Direct Bilirubin 2.8 H (0.0-0.2) mg/dL AST 1386 H (13-39) Units/L ALT > 500 H (7-52) Units/L Alkaline Phosphatase 140 H (34-104) Units/L Albumin 3.0 L (3.5-5.7) g/dL - ABG Interpretation ABG results: PT/INR, D-dimer PT 13.7 Seconds (9.4-12.1) H 04/19/18 05:34 Consult Discharge Plan - Plan Referrals: Sammie Buckley CNP [Partnered Physician] - 04/27/18 2:00 pm (Primary Care Physician appt has been made with Sammie Buckley CNP for Friday April 27, 2018 at 2:00 PM. Please arrive 30 minutes early to fill out medical history. Also bring a list of medications you are currently prescribed. If you are to cancel you must give a 24 hour notice and can contact the office at .) NONE,PCP [Primary Care Provider] - Dick Lambert [Family Provider] -
[2018-04-21] MEDS: Ringers Solution, Lactated 1,000 ML IVC SCH (01:27)
[2018-04-21] MEDS: Ketorolac 30 MG/ML VIAL IVP PRN (04:48)
[2018-04-21] MEDS: Ondansetron ODT 4 MG TAB.RAPDIS SL PRN (04:54)
[2018-04-21] MEDS: *HR* Heparin 5,000 UNIT/ML VIAL SQ SCH (04:54)
[2018-04-21 06:27] LABS: Alanine Aminotransferase > 500 Units/L (7-52); Albumin/Globulin Ratio 1.1 (1.1-2.2); Alkaline Phosphatase 149 Units/L (34-104); BUN/Creatinine Ratio 9 (6-26); Bilirubin,Total 6.3 mg/dL (0.3-1.0); Blood Urea Nitrogen 7 mg/dL (6-20); Calcium 8.5 mg/dL (8.6-10.3); Carbon Dioxide 24 mEq/L (23-29); Chloride 105 mEq/L (98-107); Globulin 2.7 g/dL (2.4-3.5); Glucose 94 mg/dL (70-105); Osmolality,Calculated 280 (280-300); Potassium 3.9 mEq/L (3.5-5.1); Sodium 136 mEq/L (136-145); Total Protein 5.7 g/dL (6.4-8.9); eGFR For Non-African Americans > 60 (> 60)
[2018-04-21 06:28] LABS: Aspartate Amino Transferase 1219 Units/L (13-39)
[2018-04-21] MEDS: Lactulose Oral Soln 20 GM/30 ML UDC PO SCH (09:18)
[2018-04-21] MEDS: Nicotine 14 MG PATCH.TD24 TD SCH (09:20)
[2018-04-21 11:06] VITALS: BP 104/57
--- NOTE | 2018-04-21 12:32 | Discharge Summary ---
- NOTES TO OUTPATIENT PROVIDER Notes to Outpatient Provider: Follow-Up with GI As an Outpatient Date of Encounter: 04/21/18 Time of Encounter: 11:00 - Discharge Diagnosis (1) Hepatitis Priority: Primary Status: Acute (2) Hepatic encephalopathy Priority: Primary Status: Acute (3) IV drug user Priority: Secondary Status: Acute (4) Tobacco use Priority: Secondary Status: Acute Hospital course: Patient is a 33-year-old male with past medical history significant for hepatitis C, bleeding ulcers, cholecystitis and IV drug use who presents to the ER with 1 week history of bilateral flank pain and right upper quadrant abdominal pain. The patient says that this started insidiously about one week ago and has been progressively getting worse. It is associated with some nausea but no vomiting as well as profound lethargy and some yellowing of the skin. The patient mentions that he has had a history of hospitalizations over the course the past year. He says that about 1 year ago he was at [facility] which time he was admitted for what he says he believes was suspected kidney failure, however he signed out AGAINST MEDICAL ADVICE prior to finishing the workup In addition of this, he says that over the past couple of months he has had to go to [facility] several times due to episodes of fainting and passing out, but each time he has also left AGAINST MEDICAL ADVICE prior to completing the workup. He does admit to a history of IV drug use, mentioning at the last time he used IV meth was about one week ago. He denies use of alcohol, says the last time he had any alcohol consumption was about 4 years ago. He smokes about half a pack a day. In the ER, the patient did have a series of labs which demonstrated elevated liver enzymes with AST 851, ALT greater than 500, T BILI 2.3, D BILI 0.9, I BILI 1.4. During patients hospital stay, GI was consulted with recommendations for supportive care with IV fluids and elevated transaminases were still elevated but gradually improved. Patients symptoms of abdominal discomfort and improved and was able to tolerate by mouth so be discharged to follow-up with GI as an outpatient. - Time Spent with Patient Total time spent providing and/or coordinating discharge services: Less than 30 minutes - Discharge Medications Home Medications: No Known Home Drugs 04/18/18 [History] Allergies/Adverse Reactions: 3 Allergy/AdvReac Type Severity Reaction Status Date / Time Penicillins Allergy Swelling Verified 04/18/18 14:33 of Lip/Tongue/Throat Date of admission: 04/20/18 07:26 Primary care physician: PCP NONE - Constitutional Vitals: Temp Pulse Resp BP Pulse Ox 98.2 F 66 16 104/57 96 04/21/18 11:05 04/21/18 11:05 04/21/18 11:05 04/21/18 11:05 04/21/18 11:05 Exam: Gen.: Nonacute distress, alert and oriented 3 Abdomen: Soft, nontender and nondistended with positive bowel sounds - Patient Status Disposition: Home, Self-Care Condition: Good - Discharge Instructions Instructions: Viral Hepatitis A (DC) Follow Up With: Sammie Buckley CNP [Partnered Physician] - 04/27/18 2:00 pm (Primary Care Physician appt has been made with Sammie Buckley CNP for Friday April 27, 2018 at 2:00 PM. Please arrive 30 minutes early to fill out medical history. Also bring a list of medications you are currently prescribed. If you are to cancel you must give a 24 hour notice and can contact the office at .)
== END 2018-04-21 15:06 | disposition home or self-care (01) ==
LOC: EMEROOARM 14:29 → 3ANU 14:29 → SUATTDRO 19:48 → 3ANU 20:32
PROVIDERS: ADMIT Family Medicine; ATTEND Hospitalist